=== PATIENT | male | born 1980 | race Caucasian/White ===

== ENCOUNTER 2023-02-26 07:57 | Day surgery (SDC) | payer OTHER ==
[2023-02-26] VITALS (13 sets, daily range): BP systolic 106–131; BP diastolic 61–82
[~2023-02-26] VITALS: Ht 167.6 cm; Wt 53.2 kg
[~2023-02-26 07:57] MED LIST: IBUP600 PO
[2023-02-26] MEDS ORDERED: NAPROXEN PO (08:18)
--- NOTE | 2023-02-26 12:20 | NUR ---
PT SLIPPED TO GROUND WHILE PUTTING UNDERWEAR ON. REPORTS THAT HIS RIGHT LEG FEELS NUMB. PT ABLE TO MOVE RIGHT LEG, REPORTS JUST NOT ABLE TO PUT ANY WEIGHT ON IT. RN WAS WITH PT WHEN HE WENT TO FLOOR. DR MARTINEZ NOTIFIED. VSS. NO NEW ORDERS. PT REPORTS HE IS DOING GOOD. PT ABLE TO GET TO BACK INTO BED WITHOUT DIFFICULTY. ABD SITE WNL. DRESSING C/D/I. SPACE [employer]ER NOTIFIED WELL.
--- NOTE | 2023-02-26 13:05 | NUR ---
PT ABLE TO STAND WITH SBA. PT NOT ABLE TO WALK YET. PT ABLE TO GET TO W/C WITHOUT DIFFICULTY. PT REPORTS THAT HIS LEG IS STARTING TO "WAKE UP MORE". PT ABLE TO VOID WITHOUT DIFFICULTY. PT ASSISTED TO BATHROOM AND BACK,USING W/C FOR TRANSPORTING FROM BED TO BATHROOM AND BACK. PT REPORTS THAT IT FEELS LIKE IT WON'T BE TO LONG UNTIL HE IS ABLE TO WALK WITH ASSIST.
--- NOTE | 2023-02-26 13:28 | NUR ---
PT UP WITH SBA. PT ABLE TO AMBULATE WITH SBA. PT ABLE TO AMBULATE WITH SBA WITH [facility]. PT AND FIANCE REPORT READY TO GO HOME. PT TOLERATING PO. PT ABD SITE WNL,C/D/I. PT FIANCE REPORTS HAVING D/C PAPERWORK AND SCRIPT FOR PAIN. Discharge instructions reviewed with patient. Patient verbalizes understanding. Copy given to patient to take home. Patient States Post-Procedure ride home has been arranged. Discharged via wheelchair to private car for ride home.
== END 2023-02-26 13:28 | disposition home or self-care (01) ==
LOC: ORSCMMR 07:57
PROVIDERS: Surgery
PROC: 0YU50JZ Supplement Right Inguinal Region with Synthetic Substitute, Open Approach (ICD-10-PCS; principal; 2023-02-26 09:00)
DX: K40.30 Unilateral inguinal hernia, with obstruction, without gangrene, not specified as recurrent (principal); F41.8 Other specified anxiety disorders; F17.210 Nicotine dependence, cigarettes, uncomplicated
CPT/HCPCS: A9270; C1781; J0690; J1100; J1885; J2250; J2405; J2704; J3010; J7120